=== PATIENT | male | born 1960 | race Caucasian/White ===

== ENCOUNTER 2017-01-10 18:56 | Emergency (ER) | payer OTHER ==
[2017-01-10 18:56] VITALS: BP 134/67; PULSE 108; RESP 20; O2SAT 99
--- NOTE | 2017-01-10 19:24 | ED.REPORT ---
HPI-Psychiatric Illness Date of Service Jan 10, 2017 ED Provider: Dr. James Terrazas M.D. A 56 year old male with a history of bilateral hip osteonecrosis s/p recent right hip replacement presents to the ED via EMS with suicidal ideation onset today while intoxicated on alcohol. The patient attributes such stressors as his living situation, financial troubles, and fighting with his girlfriend as contributing to his symptoms. The patient also reports bilateral hip pain. He ran out of pain medication a couple of days ago and was recently accused of doctor shopping with multiple pain medication prescribers, although his PCP gave him a prescription he can fill tomorrow. Nursing Notes Stated Complaint: SUICIDAL IDEATION, INTOXICATED Chief Complaint: Psychiatric Complaint Nursing Notes Reviewed: Yes Allergies: Coded Allergies: No Known Allergies (Unverified , 01/10/17) General Time Seen by MD: 19:24 Chief Complaint Suicidal ideation Hx Obtained From: Patient Arrived By: Ambulance Onset Occurred: 9 - 12 hours ago Context of Onset: EtOH use, Intoxicated, alcohol Symptom Duration: Since onset Location: : Pelvis (Bilateral hips) Quality: Painful Severity: Current: Moderate Severity: Maximum: Moderate Pertinent Negative: Relieved by nothing Immunizations: Unknown Recent Healthcare: No recent doctor visit Risk-Psychiatric Illness Suicide Risk Stratification RF Statements: Risk factors reviewed Past Medical History Past Medical History Osteonecrosis bilateral hips Past Surgical History Right hip replacement Smoking History Current Every Day Smoker Social History Drinks alcohol Drug Use: Denies drug use Ambulatory Status Independent Review of Systems Constitutional: Denies: Fever Respiratory: Denies: Non-productive cough, Shortness of breath GI: Denies: Diarrhea, Vomiting Psychiatric: Reports: Suicidal ideation Complete sys rev & neg: except as marked. Musculoskeletal: Reports: Joint pain (Bilateral hips) Physical Exam Initial Vital Signs Vital Signs (First) Date Time Temp Pulse Resp B/P Pulse Ox O2 Delivery O2 Flow Rate FiO2 01/10/17 18:56 36.5 108 20 134/67 99 Room Air Initial VS: Reviewed Head / Eyes: Atraumatic, Normocephalic ENT: Conjunctiva normal, No scleral icterus Neck: Supple, Full range of motion Respiratory: Breath sounds normal, Clear to auscultation, No respiratory distress Cardiovascular: Regular rate & rhythm, Heart sounds normal Skin: Warm, Dry General/Constitutional: Awake, Alert Alcohol on breath Neurologic: Oriented X3, Speech NL Psychiatric: Judgment/insight NL Abnormal Mood/Affect: Positive: Depressed Abnormal Thinking / Perception: Positive: Suicidal, no plan Interpretation & Diagnostics URINE DRUG SCREEN: + Oxycodone Otherwise Negative URINE DIPSTICK: 1.015 sp gravity 7 pH Trace Protein Normal Glucose 1 mg/dl Otherwise Negative Lab Results Interpretation Result Diagram: 01/10/17191801/10/171918 Test 01/10/17 19:19 01/10/17 22:14 White Blood Count 5.4th/mm3 (3.8-10.1) Red Blood Count 3.64mil/mm3 (4.40-5.80) Hemoglobin 11.6g/dL (13.8-17.2) Hematocrit 34.9% (41.0-50.0) Mean Corpuscular Volume 95.9fL (81-100) Mean Corpuscular Hemoglobin 31.9pg (27.0-35.0) Mean Corpuscular Hemoglobin Concent 33.2% (32.0-37.0) Red Cell Distribution Width 18.5% (12.3-15.4) Platelet Count 221bil/L (150-400) Neutrophils (%) (Auto) 58.8% (40-74) Lymphocytes (%) (Auto) 33.9% (14-46) Monocytes (%) (Auto) 6.3% (4-12) Eosinophils (%) (Auto) 0.6% (0-5) Basophils (%) (Auto) 0.4% (0-3) Sodium Level 148mEq/L (134-144) Potassium Level 3.9mEq/L (3.5-5.2) Chloride Level 108mEq/L (97-108) Carbon Dioxide Level 24mmol/L (18-29) Blood Urea Nitrogen 9mg/dL (6-24) Creatinine 0.78mg/dL (0.76-1.27) Estimat Glomerular Filtration Rate 109mL/min (>59) Glucose Level 99mg/dL (60-99) Calcium Level 8.8mg/dL (8.5-10.1) Total Bilirubin 0.2mg/dL (0.0-1.2) Aspartate Amino Transf (AST/SGOT) 42U/L (0-50) Alanine Aminotransferase (ALT/SGPT) 19U/L (0-44) Alkaline Phosphatase 114U/L (25-150) Total Protein 6.6g/dL (6.4-8.4) Albumin 3.7g/dL (3.4-5.0) Thyroid Stimulating Hormone (TSH) 0.861uIU/mL (0.450-4.500) Hold Urine Received (Received) Re-Eval/Medical Decision Re-Evaluation/Progress : Time of Eval: 22:59 Patient Status: Condition improved Re-Evaluation/Progress Note: Patient's care will be transferred to Dr. Cristobal at change of shift. Discharge & Departure Shift Change Sign-Out Patient Care Transferred: Yes Discussed Complaint(s): Yes Laboratory Evaluation: Lab evaluation discussed Response to Therapy: Improved Impression: Primary Impression: Suicidal ideation Additional Impression: Alcohol intoxication Complication of substance-induced condition: uncomplicated Qualified Code: F10.120 - Alcohol abuse with intoxication, uncomplicated Discharge Condition All VS Reviewed: Yes Condition: Improved Referrals: Linda Zaidi PA-C (PCP) Care Transferred to: Dr. Cristobal Care Transferred at: 00:00 Joryibe Attestation Portions of this note were transcribed by Ashly Tran. I, Dr. Terrazas, personally performed the history, physical exam, and medical decision-making; I reviewed and confirmed the accuracy of the information in the transcribed note. Signed by: Richar Briones, 01/10/2017, 23:05 copies to: Linda aZidi PA-C, Kirk H MD Jan 10, 2017 19:24 ASHLY TRAN Jan 10, 2017 19:38
[2017-01-10 19:42] LABS: BASOPHILS % (AUTO) 0.4 % (0-3); EOSINOPHILS % (AUTO) 0.6 % (0-5); MONOCYTES % (AUTO) 6.3 % (4-12); Mean Corpuscular Hemoglobin 31.9 pg (27.0-35.0); Mean Corpuscular Volume 95.9 fL (81-100); NEUTROPHILS % (AUTO) 58.8 % (40-74); Platelet Count 221 bil/L (150-400)
[2017-01-11 00:26] VITALS: BP 129/76; PULSE 95; RESP 16; O2SAT 97
[2017-01-11] MEDS ORDERED: OLANZapine Zydis ODT 5 mg Tablet PO ONE (02:05)
[2017-01-11 06:24] VITALS: BP 137/74; PULSE 95; RESP 16; O2SAT 97
[2017-01-11 11:22] VITALS: BP 123/69; PULSE 98; RESP 12; O2SAT 99
[2017-01-11 14:00] VITALS: BP 127/78; PULSE 62; RESP 20; O2SAT 98
== END 2017-01-11 14:01 ==
LOC: EDBD 18:56 → SED 18:58
DX: R45.851 Suicidal ideations (principal); F10.120 Alcohol abuse with intoxication, uncomplicated; F17.200 Nicotine dependence, unspecified, uncomplicated; Z87.39 Personal history of other diseases of the musculoskeletal system and connective tissue; Z96.641 Presence of right artificial hip joint